=== PATIENT | female | born 1990 | race Caucasian/White ===

== ENCOUNTER → 2016-06-03 | Outpatient (CLI) | payer MEDICARE, MEDICAID | LOC: LAB 13:04 | DX: N39.0 Urinary tract infection, site not specified (principal) ==

== ENCOUNTER → 2016-07-06 | Outpatient (CLI) | payer MEDICARE, MEDICAID | LOC: LAB 17:40 | DX: N39.0 Urinary tract infection, site not specified (principal) ==